=== PATIENT | female | born 1985 | race American Indian/Alaskan Native ===

== ENCOUNTER 2018-10-17 15:36 | Emergency (ER) | payer SELFPAY ==
--- NOTE | 2018-10-17 16:22 | Emergency Department Report ---
Blank Doc - Documentation Documentation: This is a 33-year-old female that presents with nausea and vomiting. This initial assessment/diagnostic orders/clinical plan/treatment(s) is/are subject to change based on patient's health status, clinical progression and re- assessment by fellow clinical providers in the ED. Further treatment and workup at subsequent clinical providers discretion. Patient/guardians urged not to elope from the ED as their condition may be serious if not clinically assessed and managed. Initial orders include: 1- Patient sent to [facility] for further evaluation and treatment 2- labs 3- UA
[2018-10-17 17:24] LABS: Basophils # (Auto) 0.1 K/mm3 (0.0-0.1); Basophils % (Auto) 0.6 % (0.0-1.8); Eosinophils % (Auto) 0.1 % (0.0-4.3); Hematocrit 38.3 % (30.3-42.9); Hemoglobin 13.1 gm/dl (10.1-14.3); Lymphocytes % (Auto) 25.2 % (13.4-35.0); Mean Corpuscular HGB Conc 34 % (30-34); Mean Corpuscular Volume 74 fl (79-97); Monocytes # (Auto) 0.6 K/mm3 (0.0-0.8); Monocytes % (Auto) 7.6 % (0.0-7.3); Platelet Count 248 K/mm3 (140-440); Red Cell Distribution Width 15.6 % (13.2-15.2)
[2018-10-17 17:50] LABS: Alanine Aminotransferase 13 units/L (7-56); Albumin 4.1 g/dL (3.9-5); BUN/Creatinine Ratio 12; Blood Urea Nitrogen 7 mg/dL (7-17); Calcium 9.9 mg/dL (8.4-10.2); Hemolysis Index 2
--- NOTE | 2018-10-17 20:53 | Ultrasound Report ---
Transabdominal and transvaginal OB pelvic ultrasound INDICATION / CLINICAL INFORMATION: Abdominal pain. COMPARISON: None available. FINDINGS: Transabdominal: There is an intrauterine gestational sac with a pole. I see no evidence of impl antation hemorrhage. Neither ovary is seen. Images of the urinary bladder are normal. Transvaginal: There is a pole with cardiac activity and a heart rate of 166 bpm. The estimated gestational age is 10 weeks 2 days by crown-rump length. A yolk sac is present. I see no evidence of implantation hemorrhage. The right ovary measures 3.7 x 1.6 x 3.3 cm. The left ovary measures 3.2 x 2 .1 x 2.1 cm. There is no evidence of adnexal mass or free fluid. IMPRESSION: Single viable 10 week 2 day intrauterine without complication. Signer Name: Sharif Zuñiga MD Signed: 10/17/2018 8:48 PM Workstation Name: [id number]
[2018-10-17 21:09] VITALS: BP 102/59
--- NOTE | 2018-10-17 21:53 | Emergency Department Report ---
ED Abdominal Pain HPI - General Chief Complaint: Urogenital-Female Stated Complaint: SUSPECTED /VOMIT Time Seen by Provider: 10/17/18 16:20 Source: patient Mode of arrival: Ambulatory Limitations: No Limitations - Related Data Previous Rx's Medication Instructions Recorded Last Taken Type Acetaminophen [Acetaminophen TAB] 650 mg PO Q6HR PRN #30 tablet 10/17/18 Unknown Rx Nitrofurantoin Stokes/M-Cryst 100 mg PO Q12HR 7 Days #14 capsule 10/17/18 Unknown Rx [Macrobid CAP] Ondansetron [Zofran Odt] 4 mg PO Q8HR PRN #20 tab.rapdis 10/17/18 Unknown Rx Allergies Allergy/AdvReac Type Severity Reaction Status Date / Time No Known Allergies Allergy Unverified 10/17/18 15:38 ED Review of Systems ROS: Stated complaint: SUSPECTED /VOMIT Other details as noted in HPI ED Past Medical Hx - Past Medical History Hx Asthma: Yes Additional medical history: H pylori - Surgical History Additional Surgical History: tubal removed, d&C - Medications Home Medications: Home Medications Medication Instructions Recorded Confirmed Last Taken Type Acetaminophen [Acetaminophen TAB] 650 mg PO Q6HR PRN #30 tablet 10/17/18 Unknown Rx Nitrofurantoin Stokes/M-Cryst 100 mg PO Q12HR 7 Days #14 capsule 10/17/18 Unknown Rx [Macrobid CAP] Ondansetron [Zofran Odt] 4 mg PO Q8HR PRN #20 tab.rapdis 10/17/18 Unknown Rx ED Physical Exam - General Limitations: No Limitations ED Course Vital Signs 10/17/18 21:08 Temperature 99.0 F Pulse Rate 82 Respiratory 18 Rate Blood Pressure 102/59 [Left] O2 Sat by Pulse 97 Oximetry ED Medical Decision Making - Lab Data Result diagrams: 10/17/18 17:05 10/17/18 17:05 Lab Results 10/17/18 10/17/18 10/17/18 Range/Units 17:05 17:05 17:05 WBC 8.1 (4.5-11.0) K/mm3 RBC 5.20 H (3.65-5.03) M/mm3 Hgb 13.1 (10.1-14.3) gm/dl Hct 38.3 (30.3-42.9) % MCV 74 L (79-97) fl MCH 25 L (28-32) pg MCHC 34 (30-34) % RDW 15.6 H (13.2-15.2) % Plt Count 248 (140-440) K/mm3 Lymph % (Auto) 25.2 (13.4-35.0) % Stokes % (Auto) 7.6 H (0.0-7.3) % Eos % (Auto) 0.1 (0.0-4.3) % Baso % (Auto) 0.6 (0.0-1.8) % Lymph # 2.0 (1.2-5.4) K/mm3 Stokes # 0.6 (0.0-0.8) K/mm3 Eos # 0.0 (0.0-0.4) K/mm3 Baso # 0.1 (0.0-0.1) K/mm3 Seg Neutrophils % 66.5 (40.0-70.0) % Seg Neutrophils # 5.4 (1.8-7.7) K/mm3 Sodium 137 (137-145) mmol/L Potassium 3.9 (3.6-5.0) mmol/L Chloride 100.9 (98-107) mmol/L Carbon Dioxide 26 (22-30) mmol/L Anion Gap 14 mmol/L BUN 7 (7-17) mg/dL Creatinine 0.6 L (0.7-1.2) mg/dL Estimated GFR > 60 ml/min BUN/Creatinine Ratio 12 % Glucose 87 (65-100) mg/dL Calcium 9.9 (8.4-10.2) mg/dL Total Bilirubin 0.30 (0.1-1.2) mg/dL AST 12 (5-40) units/L ALT 13 (7-56) units/L Alkaline Phosphatase 66 (35-129) units/L Total Protein 7.4 (6.3-8.2) g/dL Albumin 4.1 (3.9-5) g/dL Albumin/Globulin Ratio 1.2 % HCG, Qual Positive (Negative) HCG, Quant (0-4) mIU/mL Urine Color (Yellow) Urine Turbidity (Clear) Urine pH (5.0-7.0) Ur Specific [place] (1.003-1.030) Urine Protein (Negative) mg/dL Urine Glucose (UA) (Negative) mg/dL Urine Ketones (Negative) mg/dL Urine Blood (Negative) Urine Nitrite (Negative) Urine Bilirubin (Negative) Urine Urobilinogen (<2.0) mg/dL Ur Leukocyte Esterase (Negative) Urine WBC (Auto) (0.0-6.0) /HPF Urine RBC (Auto) (0.0-6.0) /HPF U Epithel Cells (Auto) (0-13.0) /HPF Urine Bacteria (Auto) (Negative) /HPF Urine Mucus /HPF Urine Yeast (Budding) /HPF 10/17/18 10/17/18 Range/Units 17:05 Unknown WBC (4.5-11.0) K/mm3 RBC (3.65-5.03) M/mm3 Hgb (10.1-14.3) gm/dl Hct (30.3-42.9) % MCV (79-97) fl MCH (28-32) pg MCHC (30-34) % RDW (13.2-15.2) % Plt Count (140-440) K/mm3 Lymph % (Auto) (13.4-35.0) % Stokes % (Auto) (0.0-7.3) % Eos % (Auto) (0.0-4.3) % Baso % (Auto) (0.0-1.8) % Lymph # (1.2-5.4) K/mm3 Stokes # (0.0-0.8) K/mm3 Eos # (0.0-0.4) K/mm3 Baso # (0.0-0.1) K/mm3 Seg Neutrophils % (40.0-70.0) % Seg Neutrophils # (1.8-7.7) K/mm3 Sodium (137-145) mmol/L Potassium (3.6-5.0) mmol/L Chloride (98-107) mmol/L Carbon Dioxide (22-30) mmol/L Anion Gap mmol/L BUN (7-17) mg/dL Creatinine (0.7-1.2) mg/dL Estimated GFR ml/min BUN/Creatinine Ratio % Glucose (65-100) mg/dL Calcium (8.4-10.2) mg/dL Total Bilirubin (0.1-1.2) mg/dL AST (5-40) units/L ALT (7-56) units/L Alkaline Phosphatase (35-129) units/L Total Protein (6.3-8.2) g/dL Albumin (3.9-5) g/dL Albumin/Globulin Ratio % HCG, Qual (Negative) HCG, Quant [id number] H (0-4) mIU/mL Urine Color Yellow (Yellow) Urine Turbidity Cloudy (Clear) Urine pH 6.0 (5.0-7.0) Ur Specific [place] 1.018 (1.003-1.030) Urine Protein <15 mg/dl (Negative) mg/dL Urine Glucose (UA) Neg (Negative) mg/dL Urine Ketones Tr (Negative) mg/dL Urine Blood Neg (Negative) Urine Nitrite Neg (Negative) Urine Bilirubin Neg (Negative) Urine Urobilinogen < 2.0 (<2.0) mg/dL Ur Leukocyte Esterase Mod (Negative) Urine WBC (Auto) 27.0 H (0.0-6.0) /HPF Urine RBC (Auto) 12.0 (0.0-6.0) /HPF U Epithel Cells (Auto) 21.0 H (0-13.0) /HPF Urine Bacteria (Auto) 2+ (Negative) /HPF Urine Mucus 1+ /HPF Urine Yeast (Budding) Few /HPF - Radiology Data Radiology results: report reviewed, image reviewed Ordering Physician: DENISSE HINES NP Date of Service: 10/17/18 Procedure(s): US OB transvaginal Accession Number(s): [id number] cc: DENISSE HINES NP Transabdominal and transvaginal OB pelvic ultrasound INDICATION / CLINICAL INFORMATION: Abdominal pain. COMPARISON: None available. FINDINGS: Transabdominal: There is an intrauterine gestational sac with a pole. I see no evidence of implantation hemorrhage. Neither ovary is seen. Images of the urinary bladder are normal. Transvaginal: There is a pole with cardiac activity and a heart rate of 166 bpm. The estimated gestational age is 10 weeks 2 days by crown-rump length. A yolk sac is present. I see no evidence of implantation hemorrhage. The right ovary measures 3.7 x 1.6 x 3.3 cm . The left ovary measures 3.2 x 2.1 x 2.1 cm. There is no evidence of adnexal mass or free fluid. IMPRESSION: Single viable 10 week 2 day intrauterine without complication. Signer Name: Sharif Zuñiga MD Signed: 10/17/2018 8:48 PM Workstation Name: [id number] Transcribed By: RT Dictated By: Sharif Zuñiga MD Electronically Authenticated By: Sharif Zuñiga MD Signed Date/Time: 10/17/182047 DD/ 44 TD/TT: - Medical Decision Making US Single IUP, FHR 166 bpm, cbc, cmp, normal, hc, ua: pos for leuk, wbc, pt denies vaginal bleeding now states she wanted to confirm as she has a positive home test. there is no fever no chills n , nausea and vomiting in am only , pt is tolerating po intake without symptoms at this time. plan, dc to home in stable condtion with rx for zofran, tylenol follow up with OBGYN in 2-3 days given referral to same pt for dc to home in stable condition at this time. Critical care attestation.: If time is entered above; I have spent that time in minutes in the direct care of this critically ill patient, excluding procedure time. ED Disposition Clinical Impression: Abdominal pain during intrauterine Disposition: DC-01 TO HOME OR SELFCARE Is pt being admited?: No Does the pt Need Aspirin: No Condition: Stable Instructions: Morning Sickness (ED), Abdominal Pain in (ED) Prescriptions: Acetaminophen [Acetaminophen TAB] 650 mg PO Q6HR PRN #30 tablet PRN Reason: Pain Nitrofurantoin Stokes/M-Cryst [Macrobid CAP] 100 mg PO Q12HR 7 Days #14 capsule Ondansetron [Zofran Odt] 4 mg PO Q8HR PRN #20 tab.rapdis PRN Reason: nausea and vomiting Referrals: JOJO NUNEZ MD [Staff Physician] - 3-5 Days Forms: Work/School Release Form(ED) Time of Disposition: 23:42
[2018-10-17 23:07] LABS: Bacteria,Urine 2+ /HPF (Negative); Bilirubin,Urine NEG (Negative); Blood,Urine NEG (Negative); Color,Urine Yellow (Yellow); Mucus,Urine 1+ /HPF; Protein,Urine <15 mg/dL mg/dL (Negative); Urobilinogen,Urine < 2.0 mg/dL (<2.0)
== END 2018-10-18 00:02 | disposition home or self-care (01) ==
LOC: ED 15:36
DX: O26.891 Other specified pregnancy related conditions, first trimester (principal); R10.9 Unspecified abdominal pain; O21.9 Vomiting of pregnancy, unspecified; O99.511 Diseases of the respiratory system complicating pregnancy, first trimester; J45.909 Unspecified asthma, uncomplicated; Z79.899 Other long term (current) drug therapy; Z86.19 Personal history of other infectious and parasitic diseases; Z98.890 Other specified postprocedural states; Z3A.10 10 weeks gestation of pregnancy
CPT/HCPCS: 36415; 76801; 76817; 80053; 81001; 84702; 84703; 85025; 87076; 87086; 87186

== ENCOUNTER 2018-10-24 21:22 | Emergency (ER) | payer SELFPAY ==
[2018-10-24 22:53] VITALS: BP 135/83
[2018-10-24 23:28] LABS: Basophils # (Auto) 0.1 K/mm3 (0.0-0.1); Basophils % (Auto) 0.9 % (0.0-1.8); Eosinophils % (Auto) 0.1 % (0.0-4.3); Hemoglobin 12.9 gm/dl (10.1-14.3); Lymphocytes # (Auto) 2.4 K/mm3 (1.2-5.4); Lymphocytes % (Auto) 25.5 % (13.4-35.0); Mean Corpuscular HGB Conc 33 % (30-34); Mean Corpuscular Volume 74 fl (79-97); Monocytes # (Auto) 0.7 K/mm3 (0.0-0.8); Monocytes % (Auto) 7.3 % (0.0-7.3); Platelet Count 247 K/mm3 (140-440); Red Blood Count 5.25 M/mm3 (3.65-5.03); Red Cell Distribution Width 15.6 % (13.2-15.2)
--- NOTE | 2018-10-25 00:03 | Emergency Department Report ---
ED HPI - General Chief complaint: Vaginal Bleeding Stated complaint: VAGINAL BLEEDING, ABDOMINAL CRAMPS Time Seen by Provider: 10/24/18 23:52 Source: patient Mode of arrival: Ambulatory Limitations: No Limitations - History of Present Illness Initial comments: Patient is a 33-year-old female presents to the emergency room with complaints of vaginal bleeding that began today. She states at first it was spotting and it became heavier and now it is slightly again. She has associated abdominal cramping. She states she is currently 11 weeks . Her last menstrual cycle was 07/25/18. He does not have an [employer]. States she had her confirmed in the emergency department. /P:0/A:4. PMHx asthma, H. pylori. denies allergies to meds. - Related Data Previous Rx's Medication Instructions Recorded Last Taken Type Acetaminophen [Acetaminophen TAB] 650 mg PO Q6HR PRN #30 tablet 10/17/18 Unknown Rx Nitrofurantoin [place]/M-Cryst 100 mg PO Q12HR 7 Days #14 capsule 10/17/18 Unknown Rx [Macrobid CAP] Ondansetron [Zofran Odt] 4 mg PO Q8HR PRN #20 tab.rapdis 10/17/18 Unknown Rx cephALEXin [Keflex] 500 mg PO BID 7 Days #14 cap 10/25/18 Unknown Rx Allergies Allergy/AdvReac Type Severity Reaction Status Date / Time No Known Allergies Allergy Verified 10/24/18 21:27 ED Review of Systems ROS: Stated complaint: VAGINAL BLEEDING, ABDOMINAL CRAMPS Other details as noted in HPI Comment: All other systems reviewed and negative ED Past Medical Hx - Past Medical History Previous Medical History?: Yes Hx Asthma: Yes Additional medical history: H pylori, Ectopic x 2 - Surgical History Past Surgical History?: Yes Additional Surgical History: tubal removed, d&C, Ectopic x 2 - Social History Smoking Status: Never Smoker - Medications Home Medications: Home Medications Medication Instructions Recorded Confirmed Last Taken Type Acetaminophen [Acetaminophen TAB] 650 mg PO Q6HR PRN #30 tablet 10/17/18 Unknown Rx Nitrofurantoin [place]/M-Cryst 100 mg PO Q12HR 7 Days #14 capsule 10/17/18 Unknown Rx [Macrobid CAP] Ondansetron [Zofran Odt] 4 mg PO Q8HR PRN #20 tab.rapdis 10/17/18 Unknown Rx cephALEXin [Keflex] 500 mg PO BID 7 Days #14 cap 10/25/18 Unknown Rx ED Physical Exam - General Limitations: No Limitations General appearance: alert, in no apparent distress - Head Head exam: Present: atraumatic, normocephalic - Eye Eye exam: Present: normal appearance - ENT ENT exam: Present: mucous membranes moist - Respiratory Respiratory exam: Present: normal lung sounds bilaterally. Absent: respiratory distress, wheezes, rales, rhonchi, stridor, chest wall tenderness, accessory muscle use, decreased breath sounds, prolonged expiratory - Cardiovascular Cardiovascular Exam: Present: regular rate, normal rhythm, normal heart sounds. Absent: systolic murmur, diastolic murmur, rubs, gallop - GI/Abdominal GI/Abdominal exam: Present: soft, normal bowel sounds. Absent: distended, tenderness, guarding, rebound, rigid - Back Exam Back exam: Absent: CVA tenderness (R), CVA tenderness (L) - Neurological Exam Neurological exam: Present: alert, oriented X3 - Psychiatric Psychiatric exam: Present: normal affect, normal mood - Skin Skin exam: Present: warm, dry, intact ED Course Vital Signs 10/24/18 10/25/18 22:49 02:31 Temperature 98.8 F Pulse Rate 77 69 Respiratory 16 15 Rate Blood Pressure 135/83 O2 Sat by Pulse 98 97 Oximetry ED Medical Decision Making - Lab Data Result diagrams: 10/24/18 23:14 Lab Results 10/24/18 10/24/18 10/24/18 Range/Units 23:14 23:14 23:14 WBC 9.4 (4.5-11.0) K/mm3 RBC 5.25 H (3.65-5.03) M/mm3 Hgb 12.9 (10.1-14.3) gm/dl Hct 39.0 (30.3-42.9) % MCV 74 L (79-97) fl MCH 25 L (28-32) pg MCHC 33 (30-34) % RDW 15.6 H (13.2-15.2) % Plt Count 247 (140-440) K/mm3 Lymph % (Auto) 25.5 (13.4-35.0) % [place] % (Auto) 7.3 (0.0-7.3) % Eos % (Auto) 0.1 (0.0-4.3) % Baso % (Auto) 0.9 (0.0-1.8) % Lymph # 2.4 (1.2-5.4) K/mm3 [place] # 0.7 (0.0-0.8) K/mm3 Eos # 0.0 (0.0-0.4) K/mm3 Baso # 0.1 (0.0-0.1) K/mm3 Seg Neutrophils % 66.2 (40.0-70.0) % Seg Neutrophils # 6.2 (1.8-7.7) K/mm3 HCG, Qual Positive (Negative) HCG, Quant [id number] H (0-4) mIU/mL Urine Color (Yellow) Urine Turbidity (Clear) Urine pH (5.0-7.0) Ur Specific [place] (1.003-1.030) Urine Protein (Negative) mg/dL Urine Glucose (UA) (Negative) mg/dL Urine Ketones (Negative) mg/dL Urine Blood (Negative) Urine Nitrite (Negative) Urine Bilirubin (Negative) Urine Urobilinogen (<2.0) mg/dL Ur Leukocyte Esterase (Negative) Urine WBC (Auto) (0.0-6.0) /HPF Urine RBC (Auto) (0.0-6.0) /HPF U Epithel Cells (Auto) (0-13.0) /HPF Urine Bacteria (Auto) (Negative) /HPF Urine Mucus /HPF Urine Yeast (Budding) /HPF Blood Type 10/24/18 10/25/18 Range/Units 23:14 00:20 WBC (4.5-11.0) K/mm3 RBC (3.65-5.03) M/mm3 Hgb (10.1-14.3) gm/dl Hct (30.3-42.9) % MCV (79-97) fl MCH (28-32) pg MCHC (30-34) % RDW (13.2-15.2) % Plt Count (140-440) K/mm3 Lymph % (Auto) (13.4-35.0) % [place] % (Auto) (0.0-7.3) % Eos % (Auto) (0.0-4.3) % Baso % (Auto) (0.0-1.8) % Lymph # (1.2-5.4) K/mm3 [place] # (0.0-0.8) K/mm3 Eos # (0.0-0.4) K/mm3 Baso # (0.0-0.1) K/mm3 Seg Neutrophils % (40.0-70.0) % Seg Neutrophils # (1.8-7.7) K/mm3 HCG, Qual (Negative) HCG, Quant (0-4) mIU/mL Urine Color Yellow (Yellow) Urine Turbidity Slightly-cloudy (Clear) Urine pH 5.0 (5.0-7.0) Ur Specific [place] 1.020 (1.003-1.030) Urine Protein <15 mg/dl (Negative) mg/dL Urine Glucose (UA) Neg (Negative) mg/dL Urine Ketones Neg (Negative) mg/dL Urine Blood Lg (Negative) Urine Nitrite Neg (Negative) Urine Bilirubin Neg (Negative) Urine Urobilinogen < 2.0 (<2.0) mg/dL Ur Leukocyte Esterase Mod (Negative) Urine WBC (Auto) 26.0 H (0.0-6.0) /HPF Urine RBC (Auto) 11.0 (0.0-6.0) /HPF U Epithel Cells (Auto) 9.0 (0-13.0) /HPF Urine Bacteria (Auto) 1+ (Negative) /HPF Urine Mucus 1+ /HPF Urine Yeast (Budding) Few /HPF Blood Type O POSITIVE - Radiology Data Radiology results: report reviewed US OB <= 14 weeks fetus, US OB transvaginal INDICATION / CLINICAL INFORMATION: Vaginal bleeding and cramping 11 weeks . Transabdominal and transvaginal images were obtained COMPARISON: 10/17/2018 FINDINGS: Single live fetus of approximately 12 weeks 1 day gestational age in the uterus. The placenta is anterior and there is a moderate subchorionic hemorrhage present. heart rate is 165. BPD is 1.4 equaling 12 weeks 0 days Femur length is 0.7 equaling 12 weeks 2 days Abdominal circumference is 5.2 equals 12 weeks 1 day The right ovary is normal. The left ovary was not visualized IMPRESSION: Single live fetus of approximately 12 weeks 1 day gestational age in the uterus. There is a moderate-sized subchorionic hemorrhage in the placenta. heart rate is 165 Signer Name: Reddy Berry MD FACR Signed: 10/25/2018 1:02 AM Workstation Name: [id number] Transcribed By: MS Dictated By: Reddy Berry MD Electronically Authenticated By: Reddy Berry MD Signed Date/Time: 10/25/18 0102 - Medical Decision Making Patient is a 33-year-old female presents to the emergency room with complaints of vaginal bleeding that began today. She states at first it was spotting and it became heavier and now it is slightly again. She has associated abdominal cramping. She states she is currently 11 weeks . Her last menstrual cycle was 07/25/18. He does not have an [employer]. States she had her confirmed in the emergency department. /P:0/A:4. PMHx asthma, H. pylori. denies allergies to meds. vitals are stable. CBC is normal. RH positive. UA shows evidence of UTI. US OB: Single live fetus of approximately 12 weeks 1 day gestational age in the uterus. There is a moderate-sized subchorionic hemorrhage in the placenta. heart rate is 165. please take medication as prescribed. Please follow up with an [employer] in the next 2-3 days. You need to have a repeat hCG Quant in the next 2 days. your hcg quant today was [id number].It is importantly practice pelvic rest. Return to the emergency room for any new or w orsening symptoms. - Differential Diagnosis UTI, IUP, threatened , sponateous miscarriage, hemorrhage Critical care attestation.: If time is entered above; I have spent that time in minutes in the direct care of this critically ill patient, excluding procedure time. ED Disposition Clinical Impression: Vaginal bleeding, Abdominal pain during intrauterine Qualifiers: Weeks of gestation: 12 weeks Qualified Code(s): Z3A.12 - 12 weeks gestation of Subchorionic hemorrhage Qualifiers: Fetus number: single or unspecified fetus Trimester: second trimester Qualified Code(s): O41.8X20 - Other specified disorders of amniotic fluid and membranes, second trimester, not applicable or unspecified UTI (urinary tract infection) Qualifiers: Urinary tract infection type: acute cystitis Hematuria presence: with hematuria Qualified Code(s): N30.01 - Acute cystitis with hematuria Disposition: - TO HOME OR SELFCARE Is pt being admited?: No Does the pt Need Aspirin: No Condition: Stable Instructions: Threatened Miscarriage (ED), Urinary Tract Infection in Women (E D) Additional Instructions: please take medication as prescribed. Please follow up with an [employer] in the next 2-3 days. You need to have a repeat hCG Quant in the next 2 days. your hcg quant today was [id number].It is importantly practice pelvic rest. Return to the emergency room for any new or worsening symptoms. Prescriptions: cephALEXin [Keflex] 500 mg PO BID 7 Days #14 cap Referrals: [facility] MD TERRY [Primary Care Provider] - 2-3 Days [facility] [Outside] - 2-3 Days DERIC POP MD [Staff Physician] - 2-3 Days Forms: Work/School Release Form(ED) Time of Disposition: 02:17 Print Language: CITIZEN OF [place]
--- NOTE | 2018-10-25 01:06 | Ultrasound Report ---
US OB <= 14 weeks fetus, US OB transvaginal INDICATION / CLINICAL INFORMATION: Vaginal bleeding and cramping 11 weeks . Transabdominal and transvaginal images were obtained COMPARISON: 10/17/2018 FINDINGS: Single live fetus of approximately 12 weeks 1 day gestational age in the uterus. The placenta is ante rior and there is a moderate subchorionic hemorrhage present. heart rate is 165. BPD is 1.4 equaling 12 weeks 0 days Femur length is 0.7 equaling 12 weeks 2 days Abdominal circumference is 5.2 equals 12 weeks 1 day The right ovary is normal. The left ovary was not visualized IMPRESSION: Single live fetus of approximately 12 weeks 1 day gestational age in the uterus. There is a moderate- sized subchorionic hemorrhage in the placenta. heart rate is 165 Signer Name: Reddy Berry MD FACR Signed: 10/25/2018 1:02 AM Workstation Name: [id number]
[2018-10-25 01:58] LABS: Bacteria,Urine 1+ /HPF (Negative); Bilirubin,Urine NEG (Negative); Blood,Urine LG (Negative); Color,Urine Yellow (Yellow); Mucus,Urine 1+ /HPF; Protein,Urine <15 mg/dL mg/dL (Negative); Urobilinogen,Urine < 2.0 mg/dL (<2.0)
== END 2018-10-25 02:31 | disposition home or self-care (01) ==
LOC: ED 21:22
DX: O41.8X12 Other specified disorders of amniotic fluid and membranes, first trimester, fetus 2 (principal); O23.41 Unspecified infection of urinary tract in pregnancy, first trimester; O99.511 Diseases of the respiratory system complicating pregnancy, first trimester; J45.909 Unspecified asthma, uncomplicated; Z3A.12 12 weeks gestation of pregnancy
CPT/HCPCS: 36415; 76801; 76817; 81001; 84702; 84703; 85025; 86900; 86901; 87076; 87086; 87186